=== PATIENT | female | born 1980 | race Caucasian/White ===

== ENCOUNTER 2016-06-27 06:47 | Emergency (ER) | payer OTHER ==
[2016-06-27] MEDS ORDERED: DIPHENHYDRAMINE HCL 50 MG/1 ML VIAL ONE (07:13)
[2016-06-27] MEDS ORDERED: PREDNISONE 20 MG TABLET ONE (07:13)
[2016-06-27] MEDS ORDERED: KETOROLAC TROMETHAMINE 60 MG/2 ML VIAL ONE (07:13)
[2016-06-27] MEDS ORDERED: HALOPERIDOL LACTATE 5 MG/1 ML AMP ONE (07:13)
== END 2016-06-27 08:41 | disposition home or self-care (01) ==
LOC: ED 06:47
DX: M54.42 Lumbago with sciatica, left side (principal)
CPT/HCPCS: 99283 ×2; 96372 ×3; J1200; J1630; J7512; J1885